=== PATIENT | female | born 1945 | race Caucasian/White ===

== ENCOUNTER 2024-05-03 12:16 | Outpatient (OUT) | payer MEDICARE, SELFPAY ==
--- NOTE | 2024-05-03 12:31 | XR_ITS ---
[facility] [place] [id number] Patient Name: VIRY ZAMBRANO MRN: [id number] date: 1945 Sex: F Assigned Patient Location: [facility] Current Patient Location: [facility] Accession/Order Number: [id number] Exam Date: 05/03/2024 14:09 Report Date: 05/03/2024 14:10 At the request of: VIMAL ROJAS MD Procedure: XR chest 2V Chest 2 views CLINICAL HISTORY: Preop exam COMPARISON: None FINDINGS: Heart appears normal in size. Masslike consolidation right upper lobe. Left lung appears clear. Right apical pleural thickening. No free air. XR/XR chest 2V IMPRESSION: MASSLIKE CONSOLIDATION RIGHT UPPER LOBE. MALIGNANCY CANNOT BE EXCLUDED AND FURTHER EVALUATION WITH CT IS RECOMMENDED. Impression dictated by: Mars Parisi Jr., D.O.05/03/2024 2:10 PM Dictation Location: [place] [address] Electronically authenticated by: [id number] Y Date: 05/03/2024 14:10
--- NOTE | 2024-05-03 12:31 | ECG_ITS ---
[facility] Test Date: 2024-05-03 Pat Name: VIRY ZAMBRANO Department: Room: - Gender: Female Emt: : 1945 Requested By: VIMAL ROJAS Order Number: [id number] Reading MD: JOSHUA RIBERA M.D. Measurements Intervals [place] Rate: 79 P: 65 NM: 185 QRS: 44 QRSD: 84 T: 63 QT: 380 QTc: 437 Interpretive Statements SINUS RHYTHM Normal ECG No previous ECG available for comparison Electronically Signed On 05-03-2024 19:25:50 EDT by JOSHUA RIBERA M.D.
--- NOTE | 2024-05-03 13:09 | PM.PRESUREVA ---
History of Present Illness History of Present Illness Chief complaint: BLADDER TUMOR Narrative: Patient presents for presurgical testing accompanied by her . The patient states she had an episode of hematuria and urinary retention in March, she was treated in the emergency department and a Hartley catheter was placed. She states her Hartley was removed at Dr. Mcconnell office and she has been feeling much better ever since. She denies dysuria, hematuria, fever, nausea, vomiting, or any other complaints at this time. Review of Systems ROS Narrative REVIEW OF SYSTEMS: Negative except as stated in HPI, ten or more systems reviewed. Constitutional: No fever, chills, weakness ENT: No sore throat or epistaxis Cardiovascular: No edema, chest pain, palpitations, or activity intolerance Respiratory: No shortness of breath, cough, or wheezing Musculoskeletal: No joint pain or swelling Gastrointestinal: No abdominal pain, constipation, diarrhea, or vomiting Genitourinary: No dysuria or hematuria Neurological: No numbness, tingling, weakness, or headache Psychiatric: No mood changes PFSH PFSH Medical History (Updated 05/03/24 @ 12:52 by Cheyenne Vasquez NP) Macular degeneration ?H35.30 - Unspecified macular degeneration (ICD-10) Seasonal allergies ?J30.2 - Other seasonal allergic rhinitis (ICD-10) MVP (mitral valve prolapse) ?I34.1 - Nonrheumatic mitral (valve) prolapse (ICD-10) History of blood transfusion ?Z92.89 - Personal history of other medical treatment (ICD-10) Sleep apnea ?G47.30 - Sleep apnea, unspecified (ICD-10) Dysuria ?R30.0 - Dysuria (ICD-10) Hypothyroid ?E03.9 - Hypothyroidism, unspecified (ICD-10) Hypertension ?I10 - Essential (primary) hypertension (ICD-10) Hypercholesterolemia ?E78.00 - Pure hypercholesterolemia, unspecified (ICD-10) Cystitis ?N30.90 - Cystitis, unspecified without hematuria (ICD-10) Urinary retention ?R33.9 - Retention of urine, unspecified (ICD-10) Hematuria ?R31.9 - Hematuria, unspecified (ICD-10) Bladder tumor ?D49.4 - Neoplasm of unspecified behavior of bladder (ICD-10) Surgical History (Updated 05/03/24 @ 12:49 by Cheyenne Vasquez NP) History of foot surgery ?Z98.890 - Other specified postprocedural states (ICD-10) History of tubal ligation ?Z98.51 - Tubal ligation status (ICD-10) Hx of tonsillectomy ?Z90.89 - Acquired absence of other organs (ICD-10) History of cataract extraction with lens replacement Family History (Updated 05/03/24 @ 12:49 by Cheyenne Vasquez NP) Other Family history of cancer Family history of hypertension Family history of myocardial infarction Social History (Updated 05/03/24 @ 12:45 by Cheyenne Vasquez NP) Within the past year, how often did you have a drink containing alcohol: 2-3 times a week Smoking status: Current every day smoker What tobacco products do you use: cigarettes and cigars Non-prescribed substance use: denies use Previous occupational history: Healthcare worker Highest level of school completed/degree received: some college, no degree Meds Home Medications and Allergies Home Medications ?Medication ?Instructions ?Recorded ?Confirmed ?Type atorvastatin 40 mg tablet 40 mg PO DAILY 05/03/24 05/03/24 History azelastine 137 mcg (0.1 %) nasal 1 spray intranasal Q12H 05/03/24 05/03/24 History spray levothyroxine 112 mcg tablet 112 mcg PO DAILY 05/03/24 05/03/24 History lisinopril 20 1 tab PO BID 05/03/24 05/03/24 History mg-hydrochlorothiazide 12.5 mg tablet Allergies Allergy/AdvReac Type Severity Reaction Status Date / Time No Known Drug Allergies Allergy Verified 05/03/24 12:42 Exam Narrative Exam Narrative: Constitutional: Awake, alert, comfortable, well-appearing, nontoxic, interactive, vital signs as charted Head: Normocephalic, atraumatic Neck: Supple, normal appearance, normal range of motion, no meningeal signs, no lymphadenopathy Respiratory: No respiratory distress, breath sounds clear Cardiovascular: Regular rate and rhythm, strong and regular heart tones Abdomen: Nontender, normal bowel sounds, soft, no CVA tenderness Musculoskeletal: Normal gait, no swelling or edema Skin: No rashes or induration, no lesions, only visible skin inspected Neuro: No neurological deficits, normal sensation Psychiatric: Oriented ?3, normal affect Assessment and Plan Assessment and Plan (1) Bladder tumor: (2) Hematuria: (3) Urinary retention: Plan Cystoscopy, TURBT scheduled with Dr. Mcconnell May 16, 2024.
[2024-05-03 13:23] LABS: Basophils Absolute Auto 0.1 10^3/uL (0.0-0.1); Basophils Percent Auto 0.6 % (0.2-2.0); Eosinophils Absolute Auto 0.1 10^3/uL (0.0-0.7); Eosinophils Percent Auto 0.9 % (0.9-7.0); Hemoglobin 10.9 g/dL (12.0-16.0); Immature Granulocytes Abs Auto 0.03 10^3/uL (0.00-0.03); Immature Granulocytes Pct Auto 0.3 % (0.0-0.5); Lymphocytes Percent Auto 22.6 % (20.5-60.0); Mean Corpuscular Hemoglobin 27.3 pg (26.7-34.0); Mean Corpuscular Volume 82.5 fL (81.0-99.0); Mean Platelet Volume 8.3 fL (9.5-13.5); Monocytes Absolute Auto 0.7 10^3/uL (0.3-0.8); Monocytes Percent Auto 8.1 % (1.7-12.0); Neutrophils Percent Auto 67.5 % (43.0-75.0); Platelet Count 378 10^3/uL (150-450); Red Cell Distribution Width 14.4 % (11.0-15.0); White Blood Count 8.9 10^3/uL (4.0-11.0)
[2024-05-03 13:26] LABS: Anion Gap 12.8; Calcium 9.2 mg/dL (8.5-10.1); Carbon Dioxide 28.1 mmol/L (21.0-32.0); Chloride 100 mmol/L (98-107); Estimated GFR (African America >60 (>=60 mL/min/1.73m^2); Estimated GFR (Non-African Ame 51 (>=60 mL/min/1.73m^2); Glucose 106 mg/dL (74-106); Potassium 3.9 mmol/L (3.5-5.1); Sodium 137 mmol/L (136-145)
[2024-05-03 13:36] LABS: Partial Thromboplastin Time 28.5 sec (22.3-36.2); Prothrombin Time 10.6 sec (9.0-11.6)
== END 2024-05-03 12:17 | disposition home or self-care (01) ==
LOC: PST 12:22
PROVIDERS: PCP Internal Medicine; Visit Provider Urology
DX: Z01.810 Encounter for preprocedural cardiovascular examination (principal); Z01.812 Encounter for preprocedural laboratory examination; Z01.818 Encounter for other preprocedural examination; D49.4 Neoplasm of unspecified behavior of bladder; R31.9 Hematuria, unspecified
CPT/HCPCS: 71046; 80048; 85025; 85610; 85730; 93005; G0463